=== PATIENT | female | born 1950 | race Caucasian/White ===

== ENCOUNTER 2022-01-17 10:09 | Outpatient (CLI) | payer MEDICARE, OTHER | END 2022-01-17 23:59 | disposition home or self-care (01) | LOC: CARD DIAG 10:09 | PROVIDERS: ATTEND Nurse Practitioner | DX: I08.3 Combined rheumatic disorders of mitral, aortic and tricuspid valves (principal) | CPT/HCPCS: 93306 ==

== ENCOUNTER 2022-01-19 12:36 | Inpatient (IN) | payer MEDICARE, OTHER ==
[~2022-01-19] VITALS: Ht 161.3 cm; Wt 79.5 kg
[2022-01-19 13:59] LABS: MEAN CORPUSCULAR HEMOGLOBIN 15.7 PG (27.0-31.0); RED CELL DISTRIBUTION WIDTH 23.1 % (11.5-14.5)
[2022-01-19 14:01] LABS: MEAN CORPUSCULAR HGB CONC 28.5 g/dL (33.0-36.5); MEAN CORPUSCULAR VOLUME 55.1 FL (78-98); RED BLOOD COUNT 4.18 X10'6 (4.20-5.60)
[2022-01-19 14:18] LABS: MEAN PLATELET VOLUME 8.7 FL (7.4-10.4); PLATELET COUNT 362 X10'3 (140-440); WHITE BLOOD COUNT 9.1 X10'3 (4.5-11.0)
[2022-01-19 14:19] LABS: HEMOGLOBIN 6.6 g/dl (12.0-16.0)
[2022-01-19 14:34] LABS: ANISOCYTOSIS 3+; ELLIPTOCYTES 2+; HYPOCHROMASIA 3+; MICROCYTOSIS 3+; NUCLEATED RED BLOOD CELLS 1 /100WBC (0-0); PLATELET ESTIMATE NORMAL; TOTAL CELLS COUNTED 100
[2022-01-19] MEDS ORDERED: normal saline 1000ml 1,000 ML IV ONE (14:40)
[2022-01-19 15:03] LABS: RED BLOOD COUNT 4.14 X10'6 (4.20-5.60); RETICULOCYTE % (AUTO) 2.2 % (0.5-1.5)
[2022-01-19 15:15] LABS: ALANINE AMINOTRANSFERASE 19 U/L (12-78); ALBUMIN 3.8 G/DL (3.4-5.0); ALBUMIN/GLOBULIN RATIO 0.9 (1.1-1.5); ALKALINE PHOSPHATASE 80 IU/L (46-116); ANION GAP 11 (8-16); ASPARTATE AMINO TRANSFERASE 30 U/L (10-37); BILIRUBIN,TOTAL 0.2 MG/DL (0.1-1.0); BLOOD UREA NITROGEN 22 MG/DL (7-18); BUN/CREATININE RATIO 28.6 (6.6-38.0); CALCIUM 9.3 MG/DL (8.5-10.1); CHLORIDE 101 MMOL/L (99-107); CREATININE 0.77 MG/DL (0.40-0.90); GLUCOSE 84 MG/DL (70-104); POTASSIUM 3.1 MMOL/L (3.5-5.1); SODIUM 139 MMOL/L (135-145); TOTAL CARBON DIOXIDE 26.7 MMOL/L (24-32); eGFR 74 ML/MIN
[2022-01-19] MEDS ORDERED: PEG 3350/Na sulf,bicarb,Cl/KCl oral sol 4 liter bottle PO ONE (16:50)
--- NOTE | 2022-01-19 16:53 | NUR ---
ROSY FROM [facility] WITH INFORMATION REGARDING PATIENT'S TRANSPORTATION UPON DISCHARGE. CONTACT NUMBER FOR [employer] HELPER, DANITZA, FOR THE WEEKEND IS .(CELL PHONE).
[2022-01-19 17:15] LABS: OCCULT BLOOD STOOL POSITIVE (Neg)
[2022-01-19 17:43] LABS: APTT 25 SECONDS (22-32)
[2022-01-19] MEDS ORDERED: diphenhydrAMINE 50 mg/ml inj IV PRN (20:00)
[2022-01-19] MEDS ORDERED: acetaminophen 325mg tablet PO PRN ×2 (20:00)
[2022-01-19] MEDS ORDERED: bisacodyl 10mg suppository rectal RC PRN (20:00)
[2022-01-19] MEDS ORDERED: acetaminophen 650mg rectal suppository RC PRN (20:00)
[2022-01-19] MEDS ORDERED: morphine 2 MG/ML inj. syringe IV PRN ×2 (20:00)
[2022-01-19] MEDS ORDERED: diphenhydrAMINE 25mg capsule PO PRN (20:00)
[2022-01-19] MEDS ORDERED: ondansetron 4mg rapidly disintigrating tab PO PRN (20:00)
[2022-01-19] MEDS ORDERED: potassium CL 10mEq/100ml bag 100 ML IV PRN (20:00)
[2022-01-19] MEDS: docusate sod 100mg capsule PO SCH (20:00)
[2022-01-19] MEDS ORDERED: magnesium 2GM in 50ml NS 50 ML IV PRN (20:00)
[2022-01-19] MEDS ORDERED: HYDROcodone/acetaminophen 5mg/325mg tablet PO PRN (20:00)
[2022-01-19] MEDS ORDERED: POTASSIUM BICARB 20meq eff tab 20 MEQ TABLET.EFF PO PRN ×2 (20:00)
[2022-01-19] MEDS ORDERED: mag hydrox/Alum hydrox/simeth 30ml oral suspension PO PRN (20:00)
[2022-01-19] MEDS: K and/or MAG REPLACEMENT MC SCH (20:00)
[2022-01-19] MEDS ORDERED: magnesium hydroxide 30ml (MOM) UD suspension PO PRN (20:00)
[2022-01-19] MEDS ORDERED: magnesium 4gm in 100ml NS 100 ML IV PRN (20:00)
[2022-01-19] MEDS ORDERED: ondansetron/PF 4mg/2ml inj IV PRN (20:00)
[2022-01-19] MEDS ORDERED: magnesium Cl slow-release 64mg tablet PO PRN (20:00)
--- NOTE | 2022-01-19 20:30 | NUR ---
Patient in room PCU 3026. I have received report from elinor topete and had the opportunity to ask questions and assume patient care.
[2022-01-19] MEDS ORDERED: iohexol 300mg/ml 100ml inj. ONE (20:38)
[2022-01-19 20:53] LABS: HEMOGLOBIN A1C 5.9 % (4.5-6.2)
[2022-01-19 20:59] LABS: CREATINE KINASE 36 U/L (26-192); LIPASE 121 U/L (73-393); MAGNESIUM 2.3 MG/DL (1.5-2.4); POTASSIUM 3.1 MMOL/L (3.5-5.1)
[2022-01-19 21:00] LABS: CLARITY,URINE CLEAR (Clear); COLOR,URINE YELLOW (Yellow); PH,URINE 6.5 (4.8-8.0)
[2022-01-19] MEDS ORDERED: temazepam 15mg capsule PO PRN (21:00)
[2022-01-19] MEDS: pantoprazole 40MG/NS 100ML BAG 100 ML IV SCH (21:00)
[2022-01-19 21:01] LABS: GLUCOSE, URINE NEGATIVE (Neg); KETONES,URINE NEGATIVE (Neg); LEUKOCYTE ESTERASE ,URINE NEGATIVE (Neg); NITRITES, URINE NEGATIVE (Neg); OCCULT BLOOD,URINE NEGATIVE (Neg); PROTEIN,URINE NEGATIVE (Neg); UROBILINOGEN,URINE 0.2 E.U/dL (0.2-1.0)
[2022-01-19 21:05] LABS: UA COLLECTION TYPE CLN CATCH MIDSTREAM
[2022-01-19 21:12] VITALS: BP 146/68
[2022-01-19 21:27] VITALS: BP 134/63
[2022-01-19 22:30] VITALS: BP 147/75
[2022-01-19 22:32] VITALS: BP 138/68
[2022-01-20] VITALS (7 sets, daily range): BP systolic 108–143; BP diastolic 57–81
[2022-01-20] MEDS: pantoprazole 40MG/NS 100ML BAG 100 ML IV SCH ×3 (01:00→11:00)
[2022-01-20 02:38] LABS: HEMOGLOBIN 7.7 g/dl (12.0-16.0)
[2022-01-20 02:40] LABS: HEMATOCRIT 25.8 % (35.0-45.0); MEAN CORPUSCULAR HEMOGLOBIN 17.5 PG (27.0-31.0); MEAN CORPUSCULAR HGB CONC 29.9 g/dL (33.0-36.5); MEAN CORPUSCULAR VOLUME 58.7 FL (78-98); MEAN PLATELET VOLUME 8.4 FL (7.4-10.4); PLATELET COUNT 352 X10'3 (140-440); RED BLOOD COUNT 4.39 X10'6 (4.20-5.60); RED CELL DISTRIBUTION WIDTH 27.6 % (11.5-14.5); WHITE BLOOD COUNT 8.7 X10'3 (4.5-11.0)
[2022-01-20 03:08] LABS: ANISOCYTOSIS 3+; MICROCYTOSIS 3+; PLATELET ESTIMATE NORMAL; TOTAL CELLS COUNTED 100
[2022-01-20 03:09] LABS: ELLIPTOCYTES 1+; HYPOCHROMASIA 2+; POLYCHROMASIA FEW; STOMATOCYTES 1+; TEAR DROP CELLS FEW
--- NOTE | 2022-01-20 04:06 | NUR ---
WAS REPORTED TO RN THAT PATIENT WAS TO RECEIVE 2 UNITS OF PRBC'S, ONE UNIT WAS GIVEN IN ED PRIOR TO TRANSFER TO THE TELEMETRY UNIT, I DO NOT HAVE AN ORDER TO TRANSFUSE AND CALLED BLOOD BANK, SPOKE TO CINDYRON ABOUT THE ORDER. PATIENT HAD AN H/H DRAWN AT 0200 CAME BACK WITH HGB OF 7.7 AND HCT OF 25.8 AND HE TOLD ME THAT THESE VALUES ARE NOT CONSIDERED CRITICAL AND PATIENT IS NOT SYMPTOMATIC. I WILL PLACE A CALL TO DR. FARMER AND INQUIRE TO WHAT HE WOULD LIKE FOR US TO DO THERE IS A 2ND UNIT OF PRBC'S READY IN BLOOD BANK BUT WE DO NOT HAVE AN ORDER TO TRANSFUSE.
--- NOTE | 2022-01-20 04:25 | NUR ---
SPOKE TO DR FARMER REGARDING BLOOD ORDERED AND RESULTS FROM LATEST H/H-7.7 AND 25.8 PATIENT IS ASYMPTOMATIC AT THIS TIME,AND DR FARMER ORDERED TO NOT GIVE THE 2ND UNIT. I DID INFORM HIM, THAT IF IT BECOMES NECESSARY TO TRANSFUSE, WE WILL NEED A ORDER SPECIFYING NUMBER OF UNITS TO BE GIVEN.
[2022-01-20] MEDS ORDERED: IBUP-1985 PO (05:05)
[2022-01-20] MEDS ORDERED: CHOL200074 PO (05:05)
[2022-01-20] MEDS ORDERED: DIAZ10TA5 PO (05:05)
[2022-01-20] MEDS ORDERED: CHLO25TA10 PO (05:05)
[2022-01-20] MEDS ORDERED: OMEP20CA16 PO (05:05)
[2022-01-20] MEDS: potassium Cl 20mEq in NS 1,000 ML IV SCH ×2 (05:11→06:00)
--- NOTE | 2022-01-20 06:41 | NUR ---
Problems reprioritized. Patient report given, questions answered & plan of care reviewed with wei topete.
[2022-01-20 07:11] LABS: ALANINE AMINOTRANSFERASE 20 U/L (12-78); ALBUMIN 3.5 G/DL (3.4-5.0); ALBUMIN/GLOBULIN RATIO 0.9 (1.1-1.5); ALKALINE PHOSPHATASE 74 IU/L (46-116); ANION GAP 8 (8-16); ASPARTATE AMINO TRANSFERASE 29 U/L (10-37); BILIRUBIN,TOTAL 0.4 MG/DL (0.1-1.0); BLOOD UREA NITROGEN 13 MG/DL (7-18); BUN/CREATININE RATIO 18.1 (6.6-38.0); CALCIUM 8.8 MG/DL (8.5-10.1); CHLORIDE 105 MMOL/L (99-107); CHOL/HDL RATIO 2.1 (0.00-4.99); CHOLESTEROL 186 MG/DL (0-200); CREATININE 0.72 MG/DL (0.40-0.90); GLUCOSE 91 MG/DL (70-104); HDL CHOLESTEROL 90 MG/DL (35-60); LDL CHOLESTEROL 75 MG/DL (50-100); MAGNESIUM 2.1 MG/DL (1.5-2.4); POTASSIUM 3.3 MMOL/L (3.5-5.1); SODIUM 142 MMOL/L (135-145); TOTAL CARBON DIOXIDE 28.9 MMOL/L (24-32); TOTAL PROTEIN 7.3 G/DL (6.4-8.2); TRIGLYCERIDES 61 MG/DL (20-135); eGFR 80 ML/MIN
[2022-01-20] MEDS: docusate sod 100mg capsule PO SCH (08:00)
[2022-01-20] MEDS ORDERED: cefTRIAXone 1g/NS 100ml IVPB 100 ML IV SCH (08:00)
[2022-01-20] MEDS: K and/or MAG REPLACEMENT MC SCH (08:00)
[2022-01-20] MEDS ORDERED: diphenhydrAMINE 50 mg/ml inj ONE (08:15)
[2022-01-20] MEDS ORDERED: fentaNYL/PF 50MCG/1 ML 2ML syringe ONE (08:15)
[2022-01-20] MEDS ORDERED: MIDAZolam 1 MG/ML 5ML VIAL ONE (08:15)
[2022-01-20] MEDS ORDERED: LIDOcaine Viscous 15ml cup ONE (08:15)
[2022-01-20 08:30] LABS: HEMATOCRIT 26.5 % (35.0-45.0); HEMOGLOBIN 7.9 g/dl (12.0-16.0); MEAN CORPUSCULAR HEMOGLOBIN 17.7 PG (27.0-31.0); MEAN CORPUSCULAR HGB CONC 29.9 g/dL (33.0-36.5); MEAN CORPUSCULAR VOLUME 59.1 FL (78-98); MEAN PLATELET VOLUME 8.5 FL (7.4-10.4); PLATELET COUNT 364 X10'3 (140-440); RED BLOOD COUNT 4.49 X10'6 (4.20-5.60); RED CELL DISTRIBUTION WIDTH 28.3 % (11.5-14.5); WHITE BLOOD COUNT 7.8 X10'3 (4.5-11.0)
--- NOTE | 2022-01-20 12:58 | NUR ---
Paged Dr Zapata asking for patient to be back on diet. PAGER ID: [phone] MESSAGE: [phone], Aditya Guerra. Pt back from GI lab, the recommendation says to start back on reg diet. Are you ok with that? Lisbeth [id number].
[2022-01-20 15:16] LABS: RED BLOOD COUNT 4.57 X10'6 (4.20-5.60)
[2022-01-20 15:40] LABS: FERRITIN 4 NG/ML (8-252)
[2022-01-20 15:41] LABS: LACTATE DEHYDROGENASE 412 U/L (81-234)
[2022-01-20 16:02] LABS: % IRON SATURATION 5 % (11-46); IRON 26 UG/DL (49-151); TOTAL IRON BINDING CAPACITY 535 UG/DL (259-388)
--- NOTE | 2022-01-20 16:34 | NUR ---
Patient stable for discharge per Dr. Zapata. All discharge instructions reviewed with patient and all questions answered. No new prescriptions ordered. PIV discontinued, cannula intact. Tele discontinued. All belongings collected and sent with patient. Wheeled to lobby via nursing staff and picked up by friend.
== END 2022-01-20 16:01 | disposition home or self-care (01) | DRG 812 ==
LOC: ER 12:37 → ED HOLD 20:06 → EDBEDREQ 22:07 → PCU 3S 22:45
PROVIDERS: ADMIT Family Medicine; ATTEND Internal Medicine
PROC: 30233N1 Transfusion of Nonautologous Red Blood Cells into Peripheral Vein, Percutaneous Approach (ICD-10-PCS; principal; 2022-01-19)
PROC: BW251ZZ Computerized Tomography (CT Scan) of Chest, Abdomen and Pelvis using Low Osmolar Contrast (ICD-10-PCS; 2022-01-19)
PROC: 0DJD8ZZ Inspection of Lower Intestinal Tract, Via Natural or Artificial Opening Endoscopic (ICD-10-PCS; 2022-01-20)
PROC: 0DB98ZX Excision of Duodenum, Via Natural or Artificial Opening Endoscopic, Diagnostic (ICD-10-PCS; 2022-01-20)
PROC: 0DB78ZX Excision of Stomach, Pylorus, Via Natural or Artificial Opening Endoscopic, Diagnostic (ICD-10-PCS; 2022-01-20)
DX: D50.0 Iron deficiency anemia secondary to blood loss (chronic) (principal); K92.2 Gastrointestinal hemorrhage, unspecified; I50.32 Chronic diastolic (congestive) heart failure; K80.10 Calculus of gallbladder with chronic cholecystitis without obstruction; K63.5 Polyp of colon; Z20.822 Contact with and (suspected) exposure to COVID-19; E86.1 Hypovolemia; E87.6 Hypokalemia; I11.0 Hypertensive heart disease with heart failure; K29.70 Gastritis, unspecified, without bleeding; K40.90 Unilateral inguinal hernia, without obstruction or gangrene, not specified as recurrent; K57.30 Diverticulosis of large intestine without perforation or abscess without bleeding; K76.89 Other specified diseases of liver
CPT/HCPCS: 36415; 43239; 45385; 71260; 74178; 80053; 80061; 81003; 82272; 82550; 82728; 83036; 83540; 83550; 83605; 83615; 83690; 83735; 83880; 84100; 84132; 84443; 85007; 85025; 85027; 85045; 85610; 85730; 86885; 86900; 86901; 86920; 87040; 87081; 93306; 99152; 99153; 99291; A4620; C1773; C9113; G0378; J0696; J1200; J2250; J3010; J3480; J3490; J7030; J7040; P9016; Q9967